=== PATIENT | male | born 1955 | race Hispanic/Latino ===

== ENCOUNTER 2022-05-04 14:55 | Emergency (ER) | payer MEDICARE ==
--- NOTE | 2022-05-04 15:25 | Emergency Department Report ---
HPI - General PUI?: No Time Seen by Provider: 05/04/22 15:13 - HPI HPI: 67-year-old morbidly obese male with multiple medical comorbidities, including type 2 diabetes, hypertension, hyperlipidemia, coronary artery disease status post CABG (this is per verbal report provided by the patient's son) brought in by EMS as a cardiac arrest. Cardiac arrest was witnessed [place] the patient's [place] Patient's daughter states that the patient states he was not feeling well and sat down and subsequently stated he could not get up. He states that patient's pulse was weak and thready and then the patient then became unresponsive. He had been shocked by the AED approximately 2-3 times prior to EMSs arrival. EMS reports that the patient had received 3 shocks by them as well as a total of 300 mg of amiodarone IV "for what appeared to be ventricular dysrhythmia" per EMSs report. Patient also received epinephrine 1 mg x 3. Patient has not and did not receive full return of spontaneous circulation. Patient had eye gel placed an oral airway. Patient arrived to the emergency department in active cardiac arrest. ED Past Medical Hx - Past Medical History Previous Medical History?: Yes Hx Hypertension: Yes Hx Heart Attack/AMI: Yes Hx Diabetes: Yes Additional medical history: Morbid obesity - Surgical History Hx Coronary Stent: Yes (CABG) Hx Open Heart Surgery: Yes (CABG) - Family History Family history: no significant - Social History Smoking Status: Unknown if ever smoked Substance Use Type: None ED Review of Systems ROS: Stated complaint: CARDIAC ARREST Other details as noted in HPI Comment: Unobtainable due to pts medical conditions Physical Exam - Physical Exam Vital Signs: Gen: pt is well appearing, no acute distress HEENT: Normocephalic atraumatic, pupils 4 mm bilaterally,, dilated, nonreactive to light Neck: Full range of motion, no midline spinal tenderness palpation, no JVD, no carotid bruits, no nuchal rigidity CVS: S1-S2 regular rate and rhythm with no gallops rubs or murmurs, chest wall nontender Pulmonary: Clear to auscultation bilaterally, no wheezes rales or rhonchi, patient has active Tesfaye chest compressions being administered upon arrival Abdomen: Obese, soft nondistended nontender no guarding or rebound tenderness, no palpable deformities or step-offs, normal active bowel sounds, no hepatosplenomegaly, no pulsatile masses : External genitalia grossly unremarkable Extremities: No cyanosis no clubbing no edema, intact distal peripheral pulses, Integumentary: Skin normal, no petechia no purpura no abscess no lacerations no evidence of trauma no evidence of infection Neuro: Patient unresponsive, in active cardiac arrest, no spontaneous movement of extremities, GCS 3 Psych: Patient unresponsive, in active cardiac arrest ED Medical Decision Making - Medical Decision Making 67-year-old morbidly obese male with multiple medical comorbidities brought in by EMS status post witnessed cardiac arrest while at [facility]. Per EMSs report, the patient had been in active cardiac arrest and resuscitation for approximately 40 minutes prior to ED arrival. Patient arrived here to the emergency department unresponsive, with no ROSC. ACLS protocol immediately continued here. Upon arrival to the emergency department, the patient was found to be in persistent asystole cardiac arrest. He had no shockable rhythm and therefore no shocks were delivered, neither was amiodarone or any antiarrhythmics provided. He received multiple dosages of epinephrine, sodium bicarbonate, and calcium chloride. Patient continued to have no spontaneous return of circulation. At the time of final reassessment, the patient continued to remain in asystole arrest without any improvement, despite being aggressively resuscitated for a total of approximately 50 minutes (this is including both prehospital course in addition to the ED course). He remained in arrest without any ROSC. Time of pronounced at 1508. Critical Care Time: Yes (10) Critical care time in (mins) excluding proc time.: 10 Critical care attestation.: If time is entered above; I have spent that time in minutes in the direct care of this critically ill patient, excluding procedure time. ED Disposition Clinical Impression: Cardiac arrest Disposition: WITHOUT BEING TRIAGED Is pt being admited?: No Does the pt Need Aspirin: No Condition: Critical Referrals: PRIMARY CARE, [Primary Care Provider] - 3-5 Days
[2022-05-04] MEDS ORDERED: SODIUM BICARB 8.4% 50 MEQ/50 ML SYRINGE IV ONE (23:50)
[2022-05-04] MEDS ORDERED: EPINEPHrine 1 MG/10 ML SYRINGE ONE (23:50)
[2022-05-04] MEDS ORDERED: CALCIUM CHLORIDE 1,000 MG/10 ML SYRINGE IV ONE (23:50)
== END 2022-05-04 22:14 | disposition left against medical advice (07) ==
LOC: ED 14:55
DX: I46.9 Cardiac arrest, cause unspecified (principal); I10 Essential (primary) hypertension
CPT/HCPCS: 82962; 92950; 99285; J0171; J3490